=== PATIENT | female | born 1970 | race Caucasian/White ===

== ENCOUNTER → 2016-11-26 | Day surgery (SDC) | payer OTHER ==
--- NOTE | 2016-11-27 16:26 | PATH ---
Surgical Pathology Report Patient Name: TOÑO KENNEDY [facility]. Rec. #: [id number] /Age/Gender: 1970 (Age: 46) / F Account: [id number] Location: Taken: 11/26/2016 Received: 11/26/2016 Reported: 11/27/2016 Physicians: Jim Null M.D. Specimen(s) Received RIGHT BREAST 8:00 CORE BIOPSY Clinical History Ultrasound findings: Suspicious 8:00 right suspicious 1.6 cm Recently diagnosed right breast CA Final Diagnosis BREAST, RIGHT, 8:00, CORE BIOPSY: PREDOMINANTLYFIBROFATTY TISSUE SHOWING SMALL BENIGN LYMPH NODE ( 4 MM). MINUTE FRAGMENT OF BENIGN GLANDULAR BREAST PARENCHYMA WITH APOCRINE METAPLASIA. Electronically Signed Carolina Newton M.D. Gross Description Received in formalin, labeled "right breast 8:00" are multiple cores of yellow hernandez and light hernandez soft tissue having an aggregate of 2.5 x 1.5 x 0.2 cm. Entirely submitted in two cassettes. Time to formalin fixation: 2 minutes Total formalin fixation time: Approximately 7 hours
== END | disposition home or self-care (01) ==
LOC: FRADUS-SUR 09:45
PROVIDERS: ATTEND Surgery
PROC: 0HBT3ZX Excision of Right Breast, Percutaneous Approach, Diagnostic (ICD-10-PCS; principal; 2016-11-26)
DX: N63 Unspecified lump in breast (principal); N64.89 Other specified disorders of breast
CPT/HCPCS: 19085; 88305-TC; A4648; C1887; G0206-TC

== ENCOUNTER 2016-12-29 06:40 | Day surgery (SDC) | payer OTHER ==
[2016-12-25 15:10] VITALS: BMI 32.9
[~2016-12-29 06:40] MED LIST: LIDOCAINE HCL 1%, 10 MG/ML (20ML VIAL) NR ONE; ceFAZolin SODIUM 1 GM VIAL IVPB ONE
[2016-12-29] MEDS ORDERED: LIDOCAINE HCL 1%, 10 MG/ML (20ML VIAL) ONE (09:26)
[2016-12-29] MEDS ORDERED: ISOSULFAN BLUE 10 MG/ML VIAL SQ ONE (09:35)
[2016-12-29] MEDS ORDERED: ceFAZolin SODIUM 1 GM VIAL IVPB ONE (10:05)
[2016-12-29] MEDS ORDERED: LIDOCAINE HCL 1%, 10 MG/ML (20ML VIAL) NR ONE (10:12)
[2016-12-29 12:38] VITALS: TEMP 98.2
[2016-12-29 15:40] VITALS: BP 115/72; PULSE 80
--- NOTE | 2016-12-30 17:04 | OP ---
DATE OF OPERATION: 12/29/2016 PREOPERATIVE DIAGNOSIS: Right breast cancer. POSTOPERATIVE DIAGNOSIS: Right breast cancer. PROCEDURE: Right breast ultrasound guided wire localized lumpectomy and sentinel node biopsy. SURGEON: Tomeka Mahan M.D. ANESTHESIA: General. ESTIMATED BLOOD LOSS: Minimal. COMPLICATIONS: None. This is a sterile procedure. INDICATION FOR PROCEDURE: Patient presented with a screening mammogram and ultrasound that noted a new density in the upper inner right breast. A needle biopsy showed invasive carcinoma. She had a preoperative MRI that also noted an area in the upper outer right breast. This was biopsied right breast ultrasound guided wire localized lumpectomy and a sentinel node biopsy. The procedure was discussed with all the questions answered. PROCEDURE IN DETAIL: The patient was brought to [facility] in [place], and first taken to nuclear medicine, w here technetium was injected by the radiologist in the right breast 2 o'clock areolar border. She was then brought up to the operating room and after induction of general anesthesia and IV antibiotics, an intraoperative ultrasound is performed to localize the lesion in the left breast 2 o'clock location, 5 cm from the nipple. A Kopans wire was used to localize this lesion. The right breast was then prepped, 5 mL of isosulfan blue dye was injected by me into the right subareolar plexus. The breast was then massaged for 5 minutes . The right breast and axilla were then prepped and draped in the usual sterile fashion. A 4-cm incision was made in the right axilla, carried down through the clavicle pectoral fascia to identify 2 sentinel lymph nodes that were blue and hot. There was a 3rd lymph node that I thought initially was a sentinel node, but our ex vivo had not count, so it was sent as right axillary nonsentinel node. There was no other blue dye activity or pathologic appearing lymph nodes in the right axilla, therefore once hemostasis was assured, the attention was then paid to do the right breast lumpectomy. A radial incision was made in the right breast 2 o'clock location. A wire was used as a guide to get down to the area which was excised en bloc, tagged with long stitch lateral, short stitch superior. I performed a specimen ultrasound that noted that appeared to have adequate margins. The specimen as then sent to pathology for permanent section. The lymph nodes were also sent to pathology for permanent section. Hemostasis assured with electrocautery. The parenchyma was approximated with interrupted 2-0 Vicryl, skin approximated with interrupted 3-0 Vicryl, running 4-0 Prolene. A sterile dressing with Tegaderm was applied. The axillary incision was also closed in routine fashion with interrupted 2-0 Vicryl, running 4-0 Prolene, a sterile dressing with Tegaderm, 4x4s was applied. She tolerated procedure well, was extubated on the operating room table. A surgical bra was placed, and she was then taken to recovery room. Jim [id number]
--- NOTE | 2017-01-01 12:02 | PATH ---
Surgical Pathology Report Patient Name: TOÑO KENNEDY [facility]. Rec. #: [id number] /Age/Gender: 1970 (Age: 46) / F Account: [id number] Location: [facility] SURGICAL Taken: 12/29/2016 Received: 12/29/2016 Reported: 01/01/2017 Physicians: Tomeka Mahan M.D. Specimen(s) Received A: RIGHT AXILLARY SENTINEL LYMPH NODE #1 B: RIGHT AXILLARY SENTINEL LYMPH NODE #2 C: RIGHT BREAST LUMPECTOMY D: RIGHT AXILLARY NON SENTINEL LYMPH NODE Clinical History Right breast cancer 2:00, N+5 Final Diagnosis A. Axillary sentinel lymph node #1, right, excision: One benign lymph node (0/1). B. Axillary sentinel lymph node #2, right, excision: One benign lymph node (0/1). C. Breast, right, lumpectomy: INVASIVE DUCTAL CARCINOMA, MODERATELY DIFFERENTIATED, TUBULE SCORE: 2/3, NUCLEAR GRADE: 2/3, MITOTIC SCORE: 2/3; TOTAL BETY SCORE: 6/9). INVASIVE CARCINOMA MEASURES 1.1 CM IN GREATEST DIMENSION, MICROSCOPICALLY. MICROCALCIFICATIONS PRESENT WITHIN INVASIVE CARCINOMA. FOCAL DUCTAL CARCINOMA IN SITU (DCIS), CRIBRIFORM TYPE, INTERMEDIATE NUCLEAR GRADE. SURGICAL MARGINS ARE UNINVOLVED BY CARCINOMA; CARCINOMA IS 3 MM FROM CLOSEST (ANTERIOR MARGIN). REMAINDER OF THE BREAST PARENCHYMA SHOWS PRIOR BIOPSY SITE CHANGES AND FIBROCYSTIC CHANGES INCLUDING: STROMAL FIBROSIS, MICROCYSTS, APOCRINE METAPLASIA, FOCAL USUAL DUCTAL HYPERPLASIA, AND ADENOSIS. PATHOLOGIC STAGE (PTNM): pT1c pN0. SEE INVASIVE CARCINOMA SUMMARY. D. Axillary NON-sentinel lymph node, right, excision: One benign lymph node (0/1). Comments Breast Invasive Carcinoma: Surgical Pathology Cancer Case Summary Based on AJCC/UICC TNM, 7th edition Procedure _X_ Excision with image-guided localization Lymph Node Sampling _X_ [place] lymph node(s) _X_ Axillary dissection (partial dissection) Specimen Laterality _X_ Right Tumor Size: Greatest dimension of largest focus of invasion over 1 mm: 1.1 cm Tumor Focality _X_ Single focus of invasive carcinoma Macroscopic and Microscopic Extent of Tumor Ductal Carcinoma In Situ (DCIS) _X__ DCIS is present _X_ as a minor component (< 25% of tumor) Histologic Type of Invasive Carcinoma : _X_ Invasive carcinoma of no special type (ductal, not otherwise specified) Histologic Grade: ([place] Histologic Score) Tubular Differentiation _X_ Score 2 Nuclear Pleomorphism _X_ Score 2 Mitotic Rate _X_ Score 2 Overall Grade ___ Grade 2: 6 (moderately differentiated) Margins _X_ Margins uninvolved by invasive carcinoma Distance from closest margin: _3_ mm Specify margin: Anterior Lymph-Vascular Invasion _X_ Not identified Lymph Nodes Total number of lymph nodes examined (sentinel and nonsentinel): _3_ Number of sentinel lymph nodes examined: _2__ Number of lymph nodes with macrometastases ( > 2 mm): _0__ Number of lymph nodes with micrometastases (>0.2 mm to 2 mm and/or >200cells):_0__ Number of lymph nodes with isolated tumor cells (=0.2 mm and =200 cells): _0__ Extranodal Extension _X__ Not identified Pathologic Staging (pTNM) Primary Tumor (Invasive Carcinoma): pT1c Regional Lymph Nodes (pN): pN0 Biomarker Studies Results of ER and WY studies performed on prior biopsy ([id number]) at [facility] are as follows: ER (clone [id number] mouse monoclonal antibody by [employer]):60% nuclear staining with moderate intensity (Positive). WY (clone16 mouse monoclonal antibody by [employer]) : 90% nuclear staining with moderate to strong intensity (Positive). Her2 IHC (EP3 from [employer], formerly known as [id number], using Sanchez Polymer Refine detection kit): 0 (Negative). Ki67: ~10% (low proliferative index) Electronically Signed Karen Coon M.D. Gross Description A. Received in formalin labeled "right axillary sentinel lymph node #1," is a 1.1 x 0.6 x 0.5 cm hernandez blue, irregular lymph node with attached fat. The specimen is bisected and entirely submitted in one cassette. B. Received in formalin labeled "right axillary sentinel lymph node #2," is a 0.5 x 0.4 x 0.4 cm hernandez, irregular lymph node with attached fat. The specimen is bisected and entirely submitted in one cassette. C. Received in formalin, labeled "right breast lumpectomy," is a 7.5 x 6.0 x 4.1 cm. hernandez-yellow, irregular, portion of fibroadipose tissue with a needle localization wire present. There is a short suture marking the superior aspect and a long suture marking the lateral aspect, per the surgeon. There is no skin or nipple present. The specimen is inked as follows: superior and lateral blue; inferior green; medial yellow; anterior red; deep black. The specimen is serially sectioned from lateral to medial. Sectioning reveals a 1.1 x 0.7 x 0.5 cm, hernandez, indurated mass at 0.3 cm from the anterior margin and 0.9 cm from the inferior margin. The remaining margins appear clear of the mass. The remaining breast parenchyma displays foci of white fibrous tissue. Manager Academic sections are submitted in 8 cassettes as follows: 1-full face section of mass (with anterior and inferior margins); 2-additional mass with anterior margin; 2-3-crgumdiplw inferior margin; 5-superior margin; 6-deep margin; 7-lateral margin; 8-medial margin. Total formalin fixation time: Approximately 26 hours D. Received in formalin labeled "right axillary non-sentinel lymph node," are 2 fragments of fibrofatty tissue measuring 1.3 and 1.6 cm in greatest dimension, possibly containing a lymph node. The specimen is submitted in toto in one cassette. 12/30/201612/30/2016
== END 2016-12-29 15:40 | disposition home or self-care (01) ==
LOC: JASU-SURG 06:40
PROVIDERS: ATTEND Surgery
PROC: 0HBT0ZZ Excision of Right Breast, Open Approach (ICD-10-PCS; principal; 2016-12-29 09:00)
DX: C50.911 Malignant neoplasm of unspecified site of right female breast (principal)
CPT/HCPCS: 78195-TC; 84703; 88307-TC; 94760; A9541

== ENCOUNTER 2017-02-16 09:28 | Day surgery (SDC) | payer OTHER ==
[2017-02-13 12:20] VITALS: BMI 32.9
[2017-02-16] MEDS ORDERED: LIDOCAINE HCL/PF 2% SDV 5ML VIAL ONE (10:31)
[2017-02-16] MEDS ORDERED: PROPOFOL 20 ML ONE (10:31)
[2017-02-16] MEDS ORDERED: MIDAZOLAM HCL 2 MG/2 ML SINGLE DOSE VIAL ONE (10:32)
[2017-02-16] MEDS ORDERED: LIDOCAINE HCL 1%, 10 MG/ML (20ML VIAL) ONE (10:33)
[2017-02-16] MEDS ORDERED: ceFAZolin SODIUM 1 GM VIAL ONE (11:05)
[2017-02-16] MEDS ORDERED: ceFAZolin SODIUM 1 GM VIAL IVPB ONE (11:07)
[2017-02-16] MEDS ORDERED: KETOROLAC TROMETHAMINE 30 MG/1 ML VIAL ONE (11:32)
[2017-02-16] MEDS ORDERED: LIDOCAINE HCL 1%, 10 MG/ML (20ML VIAL) INF ONE (11:42)
[2017-02-16] MEDS ORDERED: ONDANSETRON 4 MG/2 ML VIAL IVPUSH PRN (11:52)
[2017-02-16] MEDS ORDERED: oxyCODONE HCL 5 MG TABLET PO PRN (11:52)
--- NOTE | 2017-02-16 11:59 | HP ---
History & Physical Update - History History: No Change - Physical Physical: No Change - Assessment Assessment: No Change - Plan Plan: No Change
[2017-02-16] MEDS ORDERED: LACTATED RINGERS SOLUTION 1,000 ML IV SCH (12:00)
[2017-02-16 12:04] VITALS: TEMP 97.9
[2017-02-16] MEDS ORDERED: ACETAMINOPHEN 325 MG TABLET (FP) PO ONE ×2 (13:45→13:55)
[2017-02-16] MEDS ORDERED: ACETAMINOPHEN 325 MG TABLET (FP) ONE (13:50)
[2017-02-16 15:14] VITALS: BP 124/74; PULSE 82
--- NOTE | 2017-02-16 21:14 | OP ---
DATE OF OPERATION: 02/16/2017 PREOPERATIVE DIAGNOSIS: Breast cancer. POSTOPERATIVE DIAGNOSIS: Breast cancer. PROCEDURE: Insertion of left Mediport. SURGEON: Tomeka Dunn MD ANESTHESIA: Local, IV sedation. ESTIMATED BLOOD LOSS: Minimal. COMPLICATIONS: None. This was a sterile procedure. INDICATION FOR PROCEDURE: Patient had a right lumpectomy and sentinel node biopsy and now requires chemotherapy and has poor venous access. Therefore, recommendation is a Mediport device for safe administration of chemotherapy. The procedure was discussed with her and all the questions answered. PROCEDURE IN DETAIL: Patient was brought to [facility], taken into the operating room. After IV sedation and IV antibiotics, the area on the upper left chest and neck were prepped and draped in the usual sterile fashion. Patient was then placed in Trendelenburg, and a percutaneous stick of the left subclavian vein was performed without difficulty. The wire was threaded, and using the Seldinger technique, the Mediport catheter was placed in to the appropriate length. This was irrigated with heparinized saline. Once this was completed, a pocket was created for the Mediport device, and the catheter was then cut at the appropriate length and attached to the Mediport device. The entire system was again flushed with heparinized saline. Hemostasis was assured with electrocautery. The incision was then closed with interrupted 3-0 Vicryl, the skin approximated with running Monocryl. The two little stab areas were also closed with interrupted Monocryl. A sterile dressing of Steri-Strips, Tegaderm, and 4 x 4's applied. She tolerated the procedure well, was taken to recovery in good condition. A chest x-ray in the recovery room showed the tip of the catheter to be in the superior vena cava with no pneumothorax. TOMEKA DUNN M.D. [id number]
== END 2017-02-16 15:50 | disposition home or self-care (01) ==
LOC: JASU-SURG 09:28
PROVIDERS: ATTEND Surgery
PROC: 05H633Z Insertion of Infusion Device into Left Subclavian Vein, Percutaneous Approach (ICD-10-PCS; principal; 2017-02-16 10:30)
DX: Z45.2 Encounter for adjustment and management of vascular access device (principal); C50.911 Malignant neoplasm of unspecified site of right female breast
CPT/HCPCS: 71010-TC; 76000-TC; 84703; 94760; J1644

== ENCOUNTER 2017-02-19 07:27 | Day surgery (SDC) | payer OTHER ==
[2017-02-19] MEDS ORDERED: DEXAMETHASONE INJECTION 20 MG in SODIUM CHLORIDE 50 ML IVPB ONE (08:30)
[2017-02-19] MEDS ORDERED: PALONOSETRON HCL 0.25 MG in SODIUM CHLORIDE 50 ML IVPB ONE (08:30)
[2017-02-19] MEDS ORDERED: SODIUM CHLORIDE IV ONE (09:00)
[2017-02-19] MEDS ORDERED: DOCETAXEL IV ONE (09:00)
[2017-02-19] MEDS ORDERED: SODIUM CHLORIDE IVPB ONE (10:00)
[2017-02-19] MEDS ORDERED: CYCLOPHOSPHAMIDE IVPB ONE (10:00)
[2017-02-19] MEDS ORDERED: SODIUM CHLORIDE 250 ML IV ONE ×2 (10:30→18:30)
[2017-02-19 14:15] LABS: MCHC 32.6 g/dl (32.0-36.0); MEAN CELL VOLUME 89.1 fl (80-96); MEAN PLT VOLUME 8.5 fl (7.5-11.1); PLATELET COUNT 284 K/MM3 (134-434); RDW 13.3 % (11.6-15.6); WHITE BLOOD COUNT 23.4 K/mm3 (4.0-10.0)
[2017-02-19 14:34] LABS: ALBUMIN 3.7 g/dl (3.4-5.0); ALK PHOS 70 U/L (45-117); ANION GAP 13 (8-16); BILIRUBIN,DIRECT < 0.2 mg/dL (0.0-0.2); BILIRUBIN,TOTAL 0.3 mg/dL (0.2-1.0); CALCIUM 8.8 mg/dL (8.5-10.1); CO2 22 mmol/L (21-32); CREATININE 0.8 mg/dL (0.55-1.02); GLUCOSE,RANDOM 126 mg/dL (74-106); SGOT/AST 13 U/L (15-37); SGPT/ALT 22 U/L (12-78); TOT PROT 7.2 g/dl (6.4-8.2)
[2017-02-19] MEDS ORDERED: ACETAMINOPHEN 325 MG TABLET (FP) PO ONE ×2 (14:45→15:00)
[2017-02-19 14:57] VITALS: TEMP 97.9
[2017-02-19] MEDS ORDERED: PORTA CATH FLUSH 10 ML IVPUSH ONE (14:57)
[2017-02-19 15:07] LABS: PLATELET ESTIMATE ADEQUATE; TOTAL CELLS COUNTED 100
[2017-02-19 15:09] LABS: LYMPH # 2.1 (8-40); MONO # 2.1 # (3.8-10.2)
[2017-02-19 19:05] VITALS: BP 129/72; PULSE 76
[2017-03-02] MEDS ORDERED: SODIUM CHLORIDE 250 ML IV ONE (08:00)
== END 2017-02-19 19:10 | disposition home or self-care (01) ==
LOC: JONCCHEMO 07:27 → J7W 14:55 → JONCCHEMO 19:10
PROVIDERS: ATTEND Internal Medicine Hematology & Oncology
PROC: 3E04305 Introduction of Other Antineoplastic into Central Vein, Percutaneous Approach (ICD-10-PCS; principal; 2017-02-19)
PROC: 3E043GC Introduction of Other Therapeutic Substance into Central Vein, Percutaneous Approach (ICD-10-PCS; 2017-02-19)
PROC: 3E0437Z Introduction of Electrolytic and Water Balance Substance into Central Vein, Percutaneous Approach (ICD-10-PCS; 2017-02-19)
DX: C50.911 Malignant neoplasm of unspecified site of right female breast (principal); Z51.11 Encounter for antineoplastic chemotherapy
CPT/HCPCS: 36415; 80053; 80076; 83735; 84703; 85025; 96361; 96375; 96413; 96417; J2469; J9070; J9171

== ENCOUNTER 2017-02-20 07:28 | Day surgery (SDC) | payer OTHER ==
[2017-02-20] MEDS ORDERED: PEGFILGRASTIM 6 MG/0.6 ML DISP.SYRIN SQ ONE (08:00)
[2017-02-20 18:21] VITALS: BP 114/62; PULSE 70; TEMP 97.9
== END 2017-02-20 18:17 | disposition home or self-care (01) ==
LOC: JONCNONCHE 07:28 → J7W 17:15 → JONCNONCHE 18:17
PROVIDERS: ATTEND Internal Medicine Hematology & Oncology
PROC: 3E013GC Introduction of Other Therapeutic Substance into Subcutaneous Tissue, Percutaneous Approach (ICD-10-PCS; principal; 2017-02-20)
DX: C50.911 Malignant neoplasm of unspecified site of right female breast (principal)
CPT/HCPCS: 96372; J2505

== ENCOUNTER → 2017-02-25 | Day surgery (SDC) | payer OTHER ==
[2017-02-25 10:28] VITALS: BP 122/90; PULSE 102; TEMP 97.6
[2017-02-25 11:04] LABS: HEMATOCRIT 42.5 % (32.4-45.2); HEMOGLOBIN 13.8 GM/dL (10.7-15.3); MCH 28.9 pg (25.7-33.7); MCHC 32.5 g/dl (32.0-36.0); MEAN PLT VOLUME 8.6 fl (7.5-11.1); PLATELET COUNT 155 K/MM3 (134-434); RBC 4.77 M/mm3 (3.60-5.2); RDW 13.2 % (11.6-15.6)
[2017-02-25 11:37] LABS: ALBUMIN 3.6 g/dl (3.4-5.0); ALK PHOS 95 U/L (45-117); ANION GAP 11 (8-16); BILIRUBIN,DIRECT < 0.2 mg/dL (0.0-0.2); BILIRUBIN,TOTAL 0.3 mg/dL (0.2-1.0); BLOOD UREA NITROGEN 10 mg/dL (7-18); CALCIUM 8.9 mg/dL (8.5-10.1); CHLORIDE 105 mmol/L (98-107); CO2 24 mmol/L (21-32); CREATININE 0.8 mg/dL (0.55-1.02); GLUCOSE,RANDOM 86 mg/dL (74-106); POTASSIUM 4.5 mmol/L (3.5-5.1); SGOT/AST 22 U/L (15-37); SGPT/ALT 24 U/L (12-78); SODIUM 140 mmol/L (136-145); TOT PROT 6.8 g/dl (6.4-8.2)
[2017-02-25 13:35] LABS: ANISOCYTOSIS 0; MACROCYTOSIS 0; PLATELET ESTIMATE NORMAL
== END | disposition home or self-care (01) ==
LOC: JONCNONCHE 07:36
PROVIDERS: ATTEND Internal Medicine Hematology & Oncology
DX: Z51.11 Encounter for antineoplastic chemotherapy (principal); C50.911 Malignant neoplasm of unspecified site of right female breast
CPT/HCPCS: 36415; 80053; 80076; 83735; 85025; 96361; 96367; 96375; 96413

== ENCOUNTER 2017-03-12 07:47 | Day surgery (SDC) | payer OTHER ==
[2017-03-12] MEDS ORDERED: SODIUM CHLORIDE 250 ML IV ONE ×2 (09:00→12:00)
[2017-03-12] MEDS ORDERED: PALONOSETRON HCL 0.25 MG/5 ML VIAL IVPUSH ONE (10:00)
[2017-03-12] MEDS ORDERED: DEXAMETHASONE INJECTION 20 MG in SODIUM CHLORIDE 100 ML IVPB ONE (10:00)
[2017-03-12] MEDS ORDERED: SODIUM CHLORIDE IV ONE (10:30)
[2017-03-12] MEDS ORDERED: DOCETAXEL IV ONE (10:30)
[2017-03-12] MEDS ORDERED: SODIUM CHLORIDE IVPB ONE (11:30)
[2017-03-12] MEDS ORDERED: CYCLOPHOSPHAMIDE IVPB ONE (11:30)
[2017-03-12 15:17] LABS: HEMATOCRIT 33.8 % (32.4-45.2); HEMOGLOBIN 11.3 GM/dL (10.7-15.3); MCH 29.4 pg (25.7-33.7); MCHC 33.3 g/dl (32.0-36.0); MEAN CELL VOLUME 88.2 fl (80-96); MEAN PLT VOLUME 8.1 fl (7.5-11.1); PLATELET COUNT 473 K/MM3 (134-434); RBC 3.83 M/mm3 (3.60-5.2); WHITE BLOOD COUNT 15.3 K/mm3 (4.0-10.0)
[2017-03-12 15:42] LABS: ALBUMIN 3.5 g/dl (3.4-5.0); ANION GAP 4 (8-16); BILIRUBIN,TOTAL 0.3 mg/dL (0.2-1.0); BLOOD UREA NITROGEN 15 mg/dL (7-18); CALCIUM 8.7 mg/dL (8.5-10.1); CHLORIDE 108 mmol/L (98-107); CO2 28 mmol/L (21-32); CREATININE 0.6 mg/dL (0.55-1.02); GLUCOSE,RANDOM 94 mg/dL (74-106); POTASSIUM 4.1 mmol/L (3.5-5.1); SGOT/AST 9 U/L (15-37); SGPT/ALT 18 U/L (12-78); SODIUM 140 mmol/L (136-145); TOT PROT 6.6 g/dl (6.4-8.2)
[2017-03-12 15:43] LABS: ALK PHOS 68 U/L (45-117)
[2017-03-12 15:59] LABS: BASO % 0.3 % (0-2.0); HEMATOCRIT 33.8 % (32.4-45.2); HEMOGLOBIN 11.2 GM/dL (10.7-15.3); LYMPH % 12.2 % (8-40); MCH 29.4 pg (25.7-33.7); MCHC 33.2 g/dl (32.0-36.0); MEAN CELL VOLUME 88.6 fl (80-96); MEAN PLT VOLUME 8.3 fl (7.5-11.1); MONO % 12.3 % (3.8-10.2); NEUT % 75.2 % (42.8-82.8); PLATELET COUNT 469 K/MM3 (134-434); RBC 3.82 M/mm3 (3.60-5.2); RDW 13.9 % (11.6-15.6); WHITE BLOOD COUNT 15.3 K/mm3 (4.0-10.0)
[2017-03-12 16:27] VITALS: TEMP 98.4
[2017-03-12] MEDS ORDERED: PORTA CATH FLUSH 10 ML IVPUSH ONE (17:16)
[2017-03-12 19:09] VITALS: BP 114/65; PULSE 73
== END 2017-03-12 19:11 | disposition home or self-care (01) ==
LOC: JONCCHEMO 07:47 → J7W 14:40 → JONCCHEMO 19:11
PROVIDERS: ATTEND Internal Medicine Hematology & Oncology
DX: Z51.11 Encounter for antineoplastic chemotherapy (principal); C50.911 Malignant neoplasm of unspecified site of right female breast
CPT/HCPCS: 36415; 80053; 85025; 85027; 96361; 96367; 96375; 96413; 96417; J1100; J2469; J9070; J9171

== ENCOUNTER 2017-03-13 07:52 | Day surgery (SDC) | payer OTHER ==
[2017-03-13] MEDS ORDERED: PEGFILGRASTIM 6 MG/0.6 ML DISP.SYRIN SQ ONE (10:00)
[2017-03-13 18:05] VITALS: BP 109/63; PULSE 70; TEMP 98.1
== END 2017-03-13 18:11 | disposition home or self-care (01) ==
LOC: JONCCHEMO 07:52 → J7W 17:30 → JONCCHEMO 18:11
PROVIDERS: ATTEND Internal Medicine Hematology & Oncology
PROC: 3E013GC Introduction of Other Therapeutic Substance into Subcutaneous Tissue, Percutaneous Approach (ICD-10-PCS; principal; 2017-03-13)
DX: C50.911 Malignant neoplasm of unspecified site of right female breast (principal)
CPT/HCPCS: 96372; J2505

== ENCOUNTER 2017-04-02 07:35 | Day surgery (SDC) | payer OTHER ==
[2017-04-02] MEDS ORDERED: SODIUM CHLORIDE 250 ML IV ONE ×2 (08:00→10:30)
[2017-04-02] MEDS ORDERED: PALONOSETRON HCL 0.25 MG/5 ML VIAL IVPUSH ONE (08:30)
[2017-04-02] MEDS ORDERED: DEXAMETHASONE INJECTION 20 MG in SODIUM CHLORIDE 100 ML IVPB ONE (08:30)
[2017-04-02] MEDS ORDERED: DOCETAXEL 140 MG in SODIUM CHLORIDE 250 ML IV ONE (09:00)
[2017-04-02] MEDS ORDERED: CYCLOPHOSPHAMIDE IVPB ONE (10:00)
[2017-04-02] MEDS ORDERED: SODIUM CHLORIDE IVPB ONE (10:00)
[2017-04-02 12:22] LABS: BASO % 0.1 % (0-2.0); HEMATOCRIT 34.4 % (32.4-45.2); HEMOGLOBIN 11.3 GM/dL (10.7-15.3); LYMPH % 8.7 % (8-40); MCH 29.3 pg (25.7-33.7); MCHC 32.9 g/dl (32.0-36.0); MEAN CELL VOLUME 89.2 fl (80-96); MEAN PLT VOLUME 7.5 fl (7.5-11.1); MONO % 11.1 % (3.8-10.2); NEUT % 80.1 % (42.8-82.8); PLATELET COUNT 353 K/MM3 (134-434); RBC 3.86 M/mm3 (3.60-5.2); RDW 14.4 % (11.6-15.6); WHITE BLOOD COUNT 16.7 K/mm3 (4.0-10.0)
[2017-04-02 12:47] LABS: ALBUMIN 3.5 g/dl (3.4-5.0); ANION GAP 11 (8-16); BILIRUBIN,DIRECT < 0.2 mg/dL (0.0-0.2); BILIRUBIN,TOTAL 0.2 mg/dL (0.2-1.0); BLOOD UREA NITROGEN 14 mg/dL (7-18); CALCIUM 8.7 mg/dL (8.5-10.1); CHLORIDE 107 mmol/L (98-107); CO2 23 mmol/L (21-32); CREATININE 0.7 mg/dL (0.55-1.02); GLUCOSE,RANDOM 111 mg/dL (74-106); MAGNESIUM 1.9 mg/dL (1.8-2.4); POTASSIUM 4.1 mmol/L (3.5-5.1); SGOT/AST 8 U/L (15-37); SGPT/ALT 18 U/L (12-78); SODIUM 141 mmol/L (136-145); TOT PROT 6.8 g/dl (6.4-8.2)
[2017-04-02 12:48] LABS: ALK PHOS 84 U/L (45-117)
[2017-04-02] MEDS ORDERED: PORTA CATH FLUSH 10 ML IVPUSH ONE (17:26)
[2017-04-02 19:17] VITALS: BP 129/68; PULSE 76; TEMP 98.6
== END 2017-04-02 19:20 | disposition home or self-care (01) ==
LOC: JONCCHEMO 07:35 → J7W 14:55 → JONCCHEMO 19:20
PROVIDERS: ATTEND Internal Medicine Hematology & Oncology
DX: Z51.11 Encounter for antineoplastic chemotherapy (principal); C50.911 Malignant neoplasm of unspecified site of right female breast
CPT/HCPCS: 36415; 80053; 80076; 83735; 85025; 96361; 96367; 96375; 96413; 96417; J1100; J2469; J9070; J9171

== ENCOUNTER 2017-04-03 07:46 | Day surgery (SDC) | payer OTHER ==
[2017-04-03] MEDS ORDERED: PEGFILGRASTIM 6 MG/0.6 ML DISP.SYRIN SQ ONE ×2 (08:00→19:00)
[2017-04-03 18:28] VITALS: TEMP 97.7
[2017-04-03 18:31] VITALS: BP 134/72; PULSE 76
== END 2017-04-03 19:30 | disposition home or self-care (01) ==
LOC: JONCCHEMO 07:46 → J7W 17:55 → JONCCHEMO 19:30
PROVIDERS: ATTEND Internal Medicine Hematology & Oncology
PROC: 3E013GC Introduction of Other Therapeutic Substance into Subcutaneous Tissue, Percutaneous Approach (ICD-10-PCS; principal; 2017-04-03)
DX: C50.911 Malignant neoplasm of unspecified site of right female breast (principal); Z76.89 Persons encountering health services in other specified circumstances
CPT/HCPCS: 96372

== ENCOUNTER 2017-04-23 07:36 | Day surgery (SDC) | payer OTHER ==
[2017-04-23] MEDS ORDERED: SODIUM CHLORIDE 250 ML IV ONE ×2 (09:00→12:00)
[2017-04-23] MEDS ORDERED: DEXAMETHASONE INJECTION 20 MG in SODIUM CHLORIDE 100 ML IVPB ONE (10:00)
[2017-04-23] MEDS ORDERED: PALONOSETRON HCL 0.25 MG/5 ML VIAL IVPUSH ONE (10:00)
[2017-04-23] MEDS ORDERED: DOCETAXEL 140 MG in SODIUM CHLORIDE 250 ML IV ONE (10:30)
[2017-04-23 11:04] LABS: BASO % 0.1 % (0-2.0); HEMATOCRIT 35.3 % (32.4-45.2); HEMOGLOBIN 11.6 GM/dL (10.7-15.3); LYMPH % 9.2 % (8-40); MCH 29.4 pg (25.7-33.7); MCHC 32.8 g/dl (32.0-36.0); MEAN CELL VOLUME 89.6 fl (80-96); MEAN PLT VOLUME 7.8 fl (7.5-11.1); MONO % 6.9 % (3.8-10.2); NEUT % 83.8 % (42.8-82.8); PLATELET COUNT 312 K/MM3 (134-434); RBC 3.94 M/mm3 (3.60-5.2); RDW 16.1 % (11.6-15.6); WHITE BLOOD COUNT 14.1 K/mm3 (4.0-10.0)
[2017-04-23 11:25] LABS: ALBUMIN 3.8 g/dl (3.4-5.0); ALK PHOS 84 U/L (45-117); ANION GAP 12 (8-16); BILIRUBIN,DIRECT < 0.2 mg/dL (0.0-0.2); BILIRUBIN,TOTAL 0.3 mg/dL (0.2-1.0); BLOOD UREA NITROGEN 14 mg/dL (7-18); CALCIUM 8.9 mg/dL (8.5-10.1); CHLORIDE 109 mmol/L (98-107); CO2 22 mmol/L (21-32); GLUCOSE,RANDOM 123 mg/dL (74-106); MAGNESIUM 1.9 mg/dL (1.8-2.4); SGOT/AST 10 U/L (15-37); SGPT/ALT 18 U/L (12-78); SODIUM 143 mmol/L (136-145); TOT PROT 6.9 g/dl (6.4-8.2)
[2017-04-23] MEDS ORDERED: CYCLOPHOSPHAMIDE IVPB ONE (11:30)
[2017-04-23] MEDS ORDERED: SODIUM CHLORIDE IVPB ONE (11:30)
[2017-04-23] MEDS ORDERED: PORTA CATH FLUSH 10 ML IVPUSH ONE (16:09)
[2017-04-23 16:10] VITALS: TEMP 97.5
[2017-04-23 16:32] VITALS: BP 113/72; PULSE 68
== END 2017-04-23 16:31 | disposition home or self-care (01) ==
LOC: JONCCHEMO 07:36 → J7W 11:26 → JONCCHEMO 16:31
PROVIDERS: ATTEND Internal Medicine Hematology & Oncology
DX: Z51.11 Encounter for antineoplastic chemotherapy (principal); C50.911 Malignant neoplasm of unspecified site of right female breast
CPT/HCPCS: 36415; 80053; 80076; 83735; 85025; 96361; 96375; 96413; 96417; J1100; J2469; J9070; J9171

== ENCOUNTER 2017-06-28 15:33 | Emergency (ER) | payer OTHER | END 2017-06-28 17:25 | disposition home or self-care (01) | LOC: JER 15:33 | CPT/HCPCS: 99282-25 ==

== ENCOUNTER 2017-08-27 05:33 | Day surgery (SDC) | payer OTHER ==
[2017-08-26 10:59] VITALS: BMI 32.7
[2017-08-27] MEDS ORDERED: ROCURONIUM BROMIDE 50 MG/5 ML VIAL ONE (13:21)
[2017-08-27] MEDS ORDERED: PROPOFOL 20 ML ONE (13:21)
[2017-08-27] MEDS ORDERED: fentaNYL CITRATE 250 MCG/5 ML VIAL ONE (13:21)
[2017-08-27] MEDS ORDERED: DEXAMETHASONE SOD PHOSPHATE 4 MG/1 ML VIAL ONE (13:23)
[2017-08-27] MEDS ORDERED: ONDANSETRON 4 MG/2 ML VIAL ONE (13:23)
[2017-08-27] MEDS ORDERED: LIDOCAINE HCL/PF 2% SDV 5ML VIAL ONE (13:23)
--- NOTE | 2017-08-27 13:40 | HP ---
History & Physical Update - History History: No Change - Physical Physical: No Change - Assessment Assessment: No Change - Plan Plan: No Change (H&P in chart from 08/17/2017)
[2017-08-27] MEDS ORDERED: ceFAZolin SODIUM 1 GM VIAL ONE (13:59)
[2017-08-27] MEDS ORDERED: ceFAZolin SODIUM 1 GM VIAL IVPB ONE (14:00)
[2017-08-27] MEDS ORDERED: BUPIVACAINE HCL/PF 0.5% (5MG/ML) 10 ML VIAL ONE (14:38)
[2017-08-27] MEDS ORDERED: GLYCOPYRROLATE 0.2 MG/1 ML VIAL ONE (14:53)
[2017-08-27] MEDS ORDERED: NEOSTIGMINE METHYLSULFATE 0.5 MG/ML - 10 ML MDV ONE (14:53)
--- NOTE | 2017-08-27 14:58 | OP ---
Operative Note - Note: Operative Date: 08/27/17 Pre-Operative Diagnosis: irregular bleeding, breast cancer Operation: laparoscopic bilateral prophylactic oophrectomy and salpingectomy, leep, hysteroscopic myomectomy, suction dilation and currettage Surgeon: Lois Rangel Mechatronics Technician: Jany Crowell Anesthesiologist/REVENUE CYCLE ADMINISTRATOR: Fina Barrera Specimens Removed: bilateral salpingx, ovaries, leep(cervical), fibroids Estimated Blood Loss (mls): 50 Drains, Volume Out (mls): 200 (manzanares) Fluid Volume Replaced (mls): 600 Operative Report Dictated: Yes
--- NOTE | 2017-08-27 15:13 | SURG ---
Surgery Post Manager Note Post Manager: Jany Crowell PA-C Date of Service: 08/27/17 Diagnosis: irregular bleeding, breast cancer Procedure: laparoscopic bilateral prophylactic oophrectomy and salpingectomy, leep, hysteroscopic myomectomy, suction dilation and currettage I was present for the entirety of the operative procedure. For further detail, please refer to operative report. Visit type - Case Type Case Type: Scheduled - Emergency Emergency Visit: No - New patient This patient is new to me today: Yes Date on this admission: 08/27/17
[2017-08-27] MEDS ORDERED: oxyCODONE HCL 5 MG TABLET PO PRN ×2 (15:22)
[2017-08-27] MEDS ORDERED: ONDANSETRON 4 MG/2 ML VIAL IVPUSH PRN (15:22)
[2017-08-27] MEDS ORDERED: LACTATED RINGERS SOLUTION 1,000 ML IV SCH (15:30)
[2017-08-27 16:11] VITALS: TEMP 98.2
[2017-08-27] MEDS ORDERED: ACETAMINOPHEN 325 MG TABLET (FP) ONE (17:58)
[2017-08-27 19:48] VITALS: BP 125/79; PULSE 78
--- NOTE | 2017-09-03 17:13 | PATH ---
Surgical Pathology Report Patient Name: OTÑO KENNEDY [facility]. Rec. #: [id number] /Age/Gender: 1970 (Age: 47) / F Account: [id number] Location: [facility] SURGICAL Taken: 08/27/2017 Received: 08/28/2017 Reported: 09/03/2017 Physicians: Lois Rangel M.D. Specimen(s) Received A: OVARY AND RIGHT FALLOPIAN TUBE B: OVARY AND LEFT FALLOPIAN TUBE C: FIBROID D: LEEP CERVIX E: ENDOMETRIAL CURETTINGS Clinical History Irregular bleeding, submucosal myoma Final Diagnosis A. OVARY AND RIGHT FALLOPIAN TUBE, SALPINGO-OOPHORECTOMY: UNREMARKABLE OVARY AND SEGMENT OF FALLOPIAN TUBE B. OVARY AND LEFT FALLOPIAN TUBE, SALPINGO-OOPHORECTOMY: UNREMARKABLE OVARY AND SEGMENT OF FALLOPIAN TUBE C. FIBROID: FRAGMENTS OF SMOOTH MUSCLE BUNDLE ADMIXED WITH WEAKLY PROLIFERATIVE ENDOMETRIAL TISSUE. D. LEEP CERVIX, EXCISION: CERVICAL TISSUE WITH MILD CHRONIC INFLAMMATION. NEGATIVE FOR DYSPLASIA. E. ENDOMETRIAL CURETTINGS: ONE FRAGMENTS OF MYOMETRIUM WITH WEAKLY PROLIFERATIVE ENDOMETRIAL TISSUE. SEPARATE FRAGMENTS OF SQUAMOUS EPITHELIUM WITH NO DIAGNOSTIC ABNORMALITIES. Electronically Signed Med Herring M.D. Gross Description A. Received in formalin labeled "right fallopian tube and ovary," is a 5 cm in length fimbriated fallopian tube. The outer surface is hernandez-champagne with tubal ovarian adhesions. Sectioning reveals an unremarkable lumen. The attached ovary measures 2.0 x 1.5 x 1.0 cm. The outer surface is hernandez, convoluted and smooth. Sectioning reveals unremarkable ovarian parenchyma. Hl7 Interface Developer sections are submitted in 3 cassettes as follows: 1-fimbria; 2-cross sections of fallopian tubes; 3-ovary. B. Received in formalin labeled "left fallopian tube and ovary," is a 5 cm in length fimbriated fallopian tube. The outer surface is hernandez velez with tubal ovarian adhesions. Sectioning reveals unremarkable lumen. The attached ovary measures 2.7 x 1.2 x 0.7 cm. The outer surface is hernandez, convoluted and smooth. Sectioning reveals unremarkable ovarian parenchyma. Hl7 Interface Developer sections are submitted in 3 cassettes as follows: 1-fimbria; 2-cross sections of fallopian tube; 3-ovary. C. Received in formalin labeled "fibroid," is a less than 1 g, 1.3 x 0.7 x 0.3 cm aggregate of hernandez, firm to rubbery tissue fragments. The specimen is submitted in toto in one cassette. D. Received in formalin labeled "LEEP-cervix," is a 0.8 cm in diameter annular, unoriented portion of tissue, consistent with a cervical LEEP cone biopsy. The specimen is partially surfaced by hernandez mucosa. The specimen is inked blue, serially sectioned and entirely and sequentially submitted in 4 cassettes. E. Received in formalin labeled "endometrial curetting," is a 2.0 x 1.2 x 0.3 cm aggregate of hernandez-champagne soft tissue fragments. The formalin is filtered and the specimen is entirely submitted in one cassette. 08/28/2017 [facility]08/28/2017
--- NOTE | 2017-09-17 16:06 | OP ---
DATE OF OPERATION: 08/27/2017 PREOPERATIVE DIAGNOSIS: Irregular bleeding, breast cancer. OPERATION: Laparoscopic bilateral salpingo-oophorectomy, also LEEP procedure (loop electrosurgical excision procedure), and hysteroscopic myomectomy, suction dilatation and curettage. SURGEON: Jennifer Rangel MD MAINTENANCE MAN: GWENDOLYN Vila ANESTHESIOLOGIST: Nurse full stack software developer SPECIMENS REMOVED: Bilateral tubes, ovaries, and cervical LEEP cone biopsy. ESTIMATED BLOOD LOSS: 500 mL PROCEDURE: Patient was taken to the operating room, placed in dorsal lithotomy position, prepped and draped in usual sterile fashion. A timeout was performed in accordance with hospital regulation. Eldridge catheter was inserted into the bladder. Attention was then drawn to the umbilicus where a 5-mm umbilical incision was made. A Veress needle was inserted into the cavity. Approximately 3-4 L of CO2 were insufflated in the cavity. Veress needle was then removed, and a 5-mm trocar was then inserted, laparoscope and camera attached. Visualization revealed leiomyomatous uterus and normal tubes and ovaries. Two trocars were inserted in the lower left and right sides, and 5-mm trocars were then inserted under direct visualization. The LigaSure was then attached with a grasper. The left tube was then grasped, and bilateral salpingectomy was then performed. Ovary was then grasped, and oophorectomy was performed using the LigaSure. Tube and ovary were then removed. The same procedure was repeated on the other side, on the right side, and LigaSure was then used to remove the tube and the ovary. Anatomy was noted to be normal. CO2 was removed from the abdomen. Tubes and ovaries were both removed and submitted to Pathology. CO2 was removed from the abdomen. Incisions were then closed using 4-0 Biosyn suture in subcuticular fashion. Attention was then drawn to the vagina where a speculum was placed in the vagina. Cervix was identified, and single-tooth tenaculum was then used to grasp the anterior lip of the cervix. Cervix was then dilated to accommodate the operative hysteroscope. Hysteroscopy was performed, and a hysteroscopic removal of polyp or fibroid was then done, followed by a suction D&C. Lugol's had been placed on the cervix initially, and a LEEP cone was then performed. Cauterization of the cervix was then done, then followed by Silke's for hemostasis. Specimen was submitted to Pathology. Speculum was then removed. All instruments were then removed. Count was noted to be correct. Estimated blood loss was 50 mL. Patient had tolerated the procedure well, was taken to recovery room in stable condition. JENNIFER RANGEL M.D. [id number]
== END 2017-08-27 20:02 | disposition home or self-care (01) ==
LOC: JASU-SURG 05:33
PROVIDERS: ATTEND Obstetrics & Gynecology
PROC: 0UDB7ZX Extraction of Endometrium, Via Natural or Artificial Opening, Diagnostic (ICD-10-PCS; 2017-08-27)
PROC: 0UJD8ZZ Inspection of Uterus and Cervix, Via Natural or Artificial Opening Endoscopic (ICD-10-PCS; 2017-08-27)
PROC: 0UB24ZZ Excision of Bilateral Ovaries, Percutaneous Endoscopic Approach (ICD-10-PCS; principal; 2017-08-27 11:00)
PROC: 0UB74ZZ Excision of Bilateral Fallopian Tubes, Percutaneous Endoscopic Approach (ICD-10-PCS; 2017-08-27 11:00)
PROC: 0UBC7ZX Excision of Cervix, Via Natural or Artificial Opening, Diagnostic (ICD-10-PCS; 2017-08-27 11:00)
PROC: 0UB98ZZ Excision of Uterus, Via Natural or Artificial Opening Endoscopic (ICD-10-PCS; 2017-08-27 11:00)
DX: N93.8 Other specified abnormal uterine and vaginal bleeding (principal); D25.0 Submucous leiomyoma of uterus; C50.919 Malignant neoplasm of unspecified site of unspecified female breast
CPT/HCPCS: 88305-TC; 94760

== ENCOUNTER 2019-02-21 07:50 | Day surgery (SDC) | payer OTHER ==
[2019-02-18 12:46] VITALS: BMI 33.6
[2019-02-21 08:54] LABS: BASO % 0.6 % (0-2.0); EOS % 1.7 % (0-4.5); HEMATOCRIT 39.2 % (32.4-45.2); LYMPH % 35.6 % (8-40); MCHC 33.2 g/dl (32.0-36.0); MEAN CELL VOLUME 90.3 fl (80-96); MEAN PLT VOLUME 8.2 fl (7.5-11.1); MONO % 9.4 % (3.8-10.2); NEUT % 52.7 % (42.8-82.8); PLATELET COUNT 242 K/MM3 (134-434); RBC 4.34 M/mm3 (3.60-5.2); WHITE BLOOD COUNT 5.6 K/mm3 (4.0-10.0)
[2019-02-21 09:22] LABS: ALBUMIN 3.7 g/dl (3.4-5.0); ALK PHOS 99 U/L (45-117); ANION GAP 7 MMOL/L (8-16); BILIRUBIN,TOTAL 0.4 mg/dL (0.2-1); BLOOD UREA NITROGEN 15.8 mg/dL (7-18); CALCIUM 9.1 mg/dL (8.5-10.1); CHLORIDE 108 mmol/L (98-107); CO2 28 mmol/L (21-32); CREATININE 0.8 mg/dL (0.55-1.3); GLUCOSE,RANDOM 90 mg/dL (74-106); POTASSIUM 4.3 mmol/L (3.5-5.1); SGOT/AST 15 U/L (15-37); SGPT/ALT 17 U/L (13-61); SODIUM 143 mmol/L (136-145); TOT PROT 6.6 g/dl (6.4-8.2)
[2019-02-21] MEDS ORDERED: PROPOFOL 20 ML ONE (09:27)
[2019-02-21] MEDS ORDERED: IBUPROFEN 800 MG/8 ML IJ IVPB PRN (10:00)
[2019-02-21] MEDS ORDERED: PROMETHAZINE HCL 25 MG/1 ML VIAL IVPB ONE (10:00)
[2019-02-21] MEDS ORDERED: ONDANSETRON 4 MG/2 ML VIAL IVPUSH PRN (10:00)
[2019-02-21] MEDS ORDERED: oxyCODONE HCL 5 MG TABLET PO PRN (10:00)
[2019-02-21] MEDS ORDERED: LACTATED RINGERS SOLUTION 1,000 ML IV SCH (10:00)
[2019-02-21] MEDS ORDERED: IBUPROFEN 400 MG TABLET (FP) PO PRN (10:12)
[2019-02-21] MEDS ORDERED: ACETAMINOPHEN 325 MG TABLET (FP) PO PRN (10:12)
--- NOTE | 2019-02-21 10:12 | HP ---
History & Physical Update - History History: No Change - Physical Physical: No Change - Assessment Assessment: No Change - Plan Plan: No Change (No change in HP)
[2019-02-21] MEDS ORDERED: MIDAZOLAM HCL 2 MG/2 ML SINGLE DOSE VIAL ONE (10:23)
[2019-02-21] MEDS ORDERED: ROCURONIUM BROMIDE 50 MG/5 ML SYRINGE ONE (10:23)
[2019-02-21] MEDS ORDERED: LIDOCAINE HCL/PF 2% SDV 5ML VIAL ONE (10:25)
[2019-02-21] MEDS ORDERED: LIDOCAINE HCL 2% JELLY (5 ML/TUBE) ONE (10:25)
[2019-02-21] MEDS ORDERED: FERRIC SUBSULFATE 500 ML BOTTLE TP ONE (11:09)
--- NOTE | 2019-02-21 11:49 | OP ---
Operative Note - Note: Operative Date: 02/21/19 Pre-Operative Diagnosis: Submucosal myoma. cervical stenosis Operation: Hysteroscopic myomectomy. Suction DC. Leep Findings: submucosal myoma removed anteriorly Post-Operative Diagnosis: Same as Pre-op Surgeon: Lois Rangel Anesthesia: General Estimated Blood Loss (mls): 30 Operative Report Dictated: Yes
[2019-02-21 14:56] VITALS: BP 122/82; PULSE 90; TEMP 97.4
--- NOTE | 2019-02-24 16:13 | PATH ---
Surgical Pathology Report Patient Name: TOÑO KENNEDY [facility]. Rec. #: [id number] /Age/Gender: 1970 (Age: 49) / F Account: [id number] Location: [facility] SURGICAL Taken: 02/21/2019 Received: 02/21/2019 Reported: 02/24/2019 Physicians: Lois Rangel M.D. Specimen(s) Received A: LEEP BIOPSY B: ENDOMETRIAL CURETTINGS Clinical History Cervical stenosis Final Diagnosis A. CERVIX, LOOP ELECTROSURGICAL EXCISION PROCEDURE (LEEP): BENIGN PREDOMINANTLY DENUDED CERVICAL SQUAMOUS AND ENDOCERVICAL MUCOSA WITH MILD CHRONIC INFLAMMATION. NO DYSPLASIA IDENTIFIED. B. ENDOMETRIAL CURETTINGS, SUBMUCOSAL MYOMA, SUCTION DILATION AND CURETTAGE: SCANT FRAGMENTS OF BENIGN CERVICAL SQUAMOUS MUCOSA, RARE FIBROMUSCULAR TISSUE SUGGESTIVE OF SUBMUCOSAL LEIOMYOMA, RARE ENDOMETRIAL GLANDS, AND BLOOD. Electronically Signed Karen Coon M.D. Gross Description A. Received in formalin labeled "LEEP biopsy," is a 1.1 cm in diameter hernandez-pink, annular portion of soft tissue, consistent with a cervical LEEP cone biopsy. The specimen is unoriented. The specimen is inked blue, serially sectioned and entirely and sequentially submitted in 4 cassettes. B. Received in formalin labeled with the patient's name and indicated on the requisition to be endometrial curettings, is a 1.5 x 1.0 x 0.3 cm aggregate of hernandez red soft tissue fragments. The formalin is filtered and the specimen is entirely submitted in one cassette. 02/21/201902/21/2019
--- NOTE | 2019-02-25 19:00 | OP ---
DATE OF OPERATION: 02/21/2019 PREOPERATIVE DIAGNOSES: 1. Submucosal myoma. 2. Endometrial polyp. 3. Cervical stenosis. OPERATION: Hysteroscopic myomectomy and loop electrocautery excision procedure. SURGEON: Lois Rangel MD ANESTHESIA: General. BLOOD LOSS: About 20 mL. PROCEDURE: Patient was taken to the operating room and placed in dorsal lithotomy position, prepped and draped in the usual sterile fashion. Time-out was performed in accordance with hospital regulation. Speculum was placed in the vagina. Anterior lip of the cervix was grasped with a single-tooth tenaculum. Cervical canal was noted to be severely stenotic. LEEP procedure was then performed to remove the ectocervix and submitted to Pathology. Cervix was then dilated to accommodate the operative hysteroscope. Examination of the submucosal myoma was done anteriorly, and cautery and cutting of the myoma was then done. Suction dilation and curettage was then done. Hemostasis achieved. Ball was then used to coagulate the cervix. Hemostasis was achieved. All instruments were then removed. Patient tolerated procedure well and was taken to recovery in stable condition. LOIS RANGEL M.D. [id number]
== END 2019-02-21 15:10 | disposition home or self-care (01) ==
LOC: JASU-SURG 07:50
PROVIDERS: ATTEND Obstetrics & Gynecology
PROC: 0UB98ZZ Excision of Uterus, Via Natural or Artificial Opening Endoscopic (ICD-10-PCS; principal; 2019-02-21 09:30)
PROC: 0UBC8ZX Excision of Cervix, Via Natural or Artificial Opening Endoscopic, Diagnostic (ICD-10-PCS; 2019-02-21 09:30)
DX: D25.0 Submucous leiomyoma of uterus (principal); N84.0 Polyp of corpus uteri; N88.2 Stricture and stenosis of cervix uteri
CPT/HCPCS: 36415; 80053; 84702; 84703; 85025; 86850; 86900; 86901; 94760

== ENCOUNTER 2024-08-04 20:09 | Emergency (ER) | payer OTHER ==
[2024-08-04 20:16] VITALS: BP 140/73; PULSE 98; RESP 18; TEMP 98.6; BMI 34.5
[2024-08-04] MEDS ORDERED: ACETAMINOPHEN 325 MG TABLET (FP) ONE (20:46)
[2024-08-04] MEDS: ACETAMINOPHEN 325 MG TABLET (FP) PO ONE (20:48)
== END 2024-08-05 00:55 | disposition home or self-care (01) ==
LOC: JERFT 20:09
DX: M25.572 Pain in left ankle and joints of left foot (principal); M25.472 Effusion, left ankle; M25.531 Pain in right wrist; W01.0XXA Fall on same level from slipping, tripping and stumbling without subsequent striking against object, initial encounter; Y99.0 Civilian activity done for income or pay
CPT/HCPCS: 73110-TC-RT-FY; 73130-TC-RT-FY; 73610-TC-LT-FY; 73630-TC-LT; 99284-25